=== PATIENT | male | born 1955 | race Caucasian/White ===

== ENCOUNTER → 2017-04-01 | Outpatient (REF) | LOC: ZLAB.WCH 18:40 | DX: Z01.89 Encounter for other specified special examinations (principal) | CPT/HCPCS: G0103 ==

== ENCOUNTER → 2017-10-11 | Outpatient (REF) | LOC: ZLAB.WCH 18:10 | DX: Z01.89 Encounter for other specified special examinations (principal) | CPT/HCPCS: G0103 ==

== ENCOUNTER → 2018-04-04 | Outpatient (REF) | LOC: ZLAB.WCH 16:06 | DX: Z01.89 Encounter for other specified special examinations (principal) ==

== ENCOUNTER → 2018-11-16 | Outpatient (REF) ==
[2018-11-16 10:49] LABS: THYROID STIMULATING HORMONE 1.12 uIU/mL (0.465-4.680)
[2018-11-16 10:56] LABS: PSA-TOTAL 1.63 ng/mL (0-4)
== END ==
LOC: ZLAB.WCH 10:04
PROVIDERS: Physician Assistant
DX: Z01.89 Encounter for other specified special examinations (principal)
CPT/HCPCS: G0103